=== PATIENT | male | born 1990 | race Two or more races ===

== ENCOUNTER 2017-10-16 13:23 | Emergency (ER) | payer SELFPAY ==
[2017-10-16 13:27] VITALS: RESP 18
--- NOTE | 2017-10-16 13:40 | EDPHY ---
H & P Stated Complaint: Nail through L index finger - Personal History Current Tetanus Diphtheria and Acellular Pertussis (TDAP): Unsure - Medical/Surgical History Other PMH: healthy - Social History Smoking Status: Never smoked Time Seen by Provider: 10/16/17 13:40 Constitutional: Initial Vital Signs Temperature (C) 36.4 C 10/16/17 13:24 Heart Rate 94 10/16/17 13:24 Respiratory Rate 18 10/16/17 13:24 Blood Pressure 145/88 H 10/16/17 13:24 O2 Sat (%) 96 10/16/17 13:24 O2 Delivery Mode Room Air Allergies/Adverse Reactions: No Known Allergies Allergy (Unverified 10/16/17 13:27) Home Medications: Medication Instructions Recorded Cephalexin [Keflex] 500 mg PO QID #28 cap 10/16/17 Medical Decision Making - Diagnostics Imaging Results: Imaging Impressions Finger X-Ray 10/16/17 13:28 Impression: Nail coursing through the distal phalanx. Finger X-Ray 10/16/17 14:27 Impression: Successful removal of the metal nail. Procedures: I was asked by Dr. Jon Mccarty to remove the foreign body from the patient's left index finger. The patient had already had a digital block including Marcaine and lidocaine without epinephrine by Dr. Jon Mccarty. After the patient's consent was obtained, the head of the nail was cut off with pliers and the nail was easily removed from the finger. Pre x-ray reveals fracture of the distal phalanx. Does not appear to extend into the D IP joint. The patient will be started on Keflex, finger splint was applied and the patient was given orthopedic hand surgical referral. 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 With a nail gun he shot a 2-3 inch nail through his left index finger. The head of the nail was imbedded in the volar aspect of the tip of his left index finger and the rest is protruding all the way through the nail plate and out the top. No other injuries. He is in pain. REVIEW OF SYSTEMS: A 10 point review of systems was performed and is negative with the exception of the elements mentioned in the history of present illness. PHYSICAL EXAM: HR, BP, O2 Sat, RR. Temp noted General Appearance: Alert, well hydrated, appropriate, and non-toxic appearing. Head: Atraumatic without scalp tenderness or obvious injury Eyes: Pupils equal, round, reactive to light and accommodation, EOMI, no trauma , no injection. Ears: Clear bilaterally, no perforation, normal landmarks Nose: Atraumatic, no rhinorrhea, clear. Throat: There is no erythema or exudates, no lesions, normal tonsils, mucus membranes moist. Neck: Supple, 2+ carotid upstroke, nontender, no lymphadenopathy. Respiratory: No retractions, no distress, no wheezes, and no accessory muscle use. Lungs are clear to auscultation bilaterally. Cardiovascular: Regular rate and rhythm, no murmurs, rubs, or gallops. Bilateral carotid, radial, dorsalis pedis, and posterior tibial pulses intact. Good capillary refill all extremities. Gastrointestinal: Abdomen is soft, nontender, non-distended, no masses, no rebound, no guarding, no peritoneal signs. Musculoskeletal: As described above there is 2 and 0.5 inch nail going from volar to dorsal direction with the head of the nail pushed directly up against the volar skin. Otherwise, Normal active ROM of all extremities, atraumatic. Neurological: Alert, appropriate, and interactive. The patient has normal DTRs and non-focal cranial nerves, motor, sensory, and cerebellar exam. Skin: No rashes, good turgor, no nodules on palpation. Past medical history: none Past surgical history: none Family history: non-contributory Social history: , employed, does not abuse tobacco drugs or alcohol DIAGNOSTICS/PROCEDURES/CRITICAL CARE TIME: Study: left index finger Indication: nail in finger Results: After viewing the images myself on the PACS system. My interpretation of the images is: no acute process. The radiologist interpretation is pending at the time of this dictation. I have discussed the above x-rays with the radiologist. DIFFERENTIAL DIAGNOSIS: Includes but is not limited to: Bony injury, nail bed injury, nail plate injury, soft tissue injury, tendon injury, neurovascular injury MEDICAL DECISION MAKING: Under sterile conditions I immediately performed a digital block on this patient with a 50 50 solution of 1% bupivacaine and 1% lidocaine without epinephrine. The patient has significant relief from the pain. X-rays pending. (Jon Mccarty) - Data Points Medications Given: Discontinued Medications Diphtheria/Tetanus/Acell Pertussis (Boostrix) 0.5 ml IM .ONCE ONE Stop: 10/16/17 13:50 Last Admin: 10/16/17 13:53 Dose: 0.5 ml Departure - Departure Disposition: Home, Routine, Self-Care Clinical Impression: Foreign body of left index finger, Fracture of distal phalanx of finger of left hand Condition: Good Instructions: Finger Fracture (ED), Soft Tissue Foreign Body (ED) Additional Instructions: Keflex 500 mg 4 times daily for 1 week. Keep splint on until follow-up with orthopedic hand surgeon. Return to the emergency department sooner if he notices any signs or symptoms of infection such as redness, swelling, increased pain, fever, purulent drainage. Referrals: Faisal Sanchez MD [Medical Doctor] - 1-2 days without fail (Orthopedic hand surgeon on-call) Prescriptions: Cephalexin [Keflex] 500 mg PO QID #28 cap
[2017-10-16] MEDS ORDERED: TDAP ADULT 0.5 ML INJ (BOOSTRIX) IM ONE (13:49)
[2017-10-16 15:03] VITALS: BP 143/87; PULSE 87; TEMP 98.1; O2SAT 97
== END 2017-10-16 15:03 | disposition home or self-care (01) ==
PROC: 3E0T3BZ Introduction of Anesthetic Agent into Peripheral Nerves and Plexi, Percutaneous Approach (ICD-10-PCS; principal; 2017-10-16)
DX: S62.631A Displaced fracture of distal phalanx of left index finger, initial encounter for closed fracture (principal); S60.451A Superficial foreign body of left index finger, initial encounter; Z23 Encounter for immunization; W45.0XXA Nail entering through skin, initial encounter